=== PATIENT | male | born 1990 | race Caucasian/White ===

== ENCOUNTER 2024-03-20 09:12 | Outpatient (AMB) | payer OTHER, SELFPAY ==
[2024-03-20 09:13] VITALS: BP 116/86; PULSE 86; TEMP 37.1; O2SAT 98; BMI 28.1
--- NOTE | 2024-03-20 09:13 | MHC.OFFWIV ---
Intake Vital Signs 03/20/24 09:13 Height 5 ft 9 in Weight 190 lb BMI 28.1 BP 116/86 Blood Pressure Location Lt brachial Position Sitting Pulse 86 Pulse Source Pulse Oximeter Temp 98.7 F Temp Source Oral Pulse Oximetry (%) 98 Oxygen Delivery Method Room Air Intake Visit Reasons: EP lowere lft side pain/pressure Intake Note: Pt is here today c/o lower Lt side hip pain and pressure 2weeks after started basic [employer] Allergies aspirin [ASA] Allergy (Unknown, Unverified 03/20/24 09:17) UNKNOWN Penicillins [PCN] Allergy (Unknown, Unverified 03/20/24 09:17) UNKNOWN HPI HPI Comments History of Present Illness Details 33-year-old male presents with right-sided abdominal/hip pain. Present off and on for several months now no specific triggers no trauma. Does endorse some looser stools recently but no blood or diarrhea. Review of Systems GI Details: Looser stools left lower abdominal pain Physical Exam Vital Signs: Last Vital Signs Temp 98.7 F 03/20/24 09:13 Pulse 86 03/20/24 09:13 BP 116/86 03/20/24 09:13 Pulse Ox 98 03/20/24 09:13 Oxygen Delivery Method Room Air 03/20/24 09:13 BMI result Body Mass Index 28.1 Const General: cooperative, healthy appearing, no acute distress and alert Orientation/consciousness: patient oriented x3 Limitations: no limitations HEENT Head: Yes normal to inspection Ears: hearing grossly normal bilaterally General nose exam: Normal external nose present Resp Effort & Inspection: normal respiratory effort and able to speak in complete sentences Cardio Rate: regular rate GI Other: No tenderness to palpation Skin General skin exam: no rashes or lesions noted Neuro General: patient oriented x3 Extrem General: Yes normal to inspection Assessment & Plan Assessment & Plan (1) Abdominal pain: Code(s): R10.9 - Unspecified abdominal pain Qualifiers: Abdominal location: left lower quadrant Qualified Code(s): R10.32 - Left lower quadrant pain Plan: Unclear etiology of patient's abdominal pain of consideration could be IBS versus musculoskeletal in nature. Recommend symptomatic treatment with Tylenol Motrin as needed as well as heat. Also recommend increasing fiber and keeping a journal does identify specific triggers. A suspicion for bony abnormality given no trauma. Coding Level of Care Code Est Pt Level 3 (88445) Diagnoses Left lower quadrant abdominal pain R10.32 Abdominal location: left lower quadrant
== END 2024-03-20 09:40 | disposition home or self-care (01) ==
LOC: HO.HMGWI 09:12
DX: R10.32 Left lower quadrant pain (principal)
CPT/HCPCS: 99051; 99213

== ENCOUNTER 2024-10-22 10:07 | Outpatient (REF) | payer OTHER, SELFPAY ==
[2024-10-22 14:52] LABS: Estimated Average Glucose 100 mg/dL; Hemoglobin A1C 134.1022 umol/L; Hemoglobin A1c % 5.1 % (<6.0); Total Hemoglobin (HGBA1C) 4104.4586 umol/L
[2024-10-22 15:40] LABS: TSH reflex Free T4 1.08 uIU/mL (0.32-4.0)
[2024-10-22 15:46] LABS: Creatinine Urine 214.21 mg/dL
[2024-10-22 15:46] LABS: Folate 14.8 ng/mL (> or = 4.0); Vitamin B12 574 pg/mL (200-900)
[2024-10-22 15:53] LABS: Anion Gap 11 (12-20)
[2024-10-22 15:58] LABS: Alanine Aminotransferase 26 U/L (0-40); Albumin Level 4.7 g/dL (3.5-5.0); Alkaline Phosphatase 68 U/L (39-117); Aspartate Amino Transferase 26 U/L (5-37); Bilirubin Total 1.5 mg/dL (0.0-1.0); Blood Urea Nitrogen 11 mg/dL (9-16); Calcium 9.3 mg/dL (8.4-10.2); Carbon Dioxide 28 mmol/L (22-29); Chloride 107 mmol/L (96-108); Cholesterol 151 mg/dL (<200); Estimated Glomerular Filt Rate > 60; Glucose Random 92 mg/dL (60-115); HDL Cholesterol 45 mg/dL (>40); LDL Cholesterol Calculated 92 mg/dL (<100); Potassium 3.8 mmol/L (3.3-5.1); Sodium 142 mmol/L (135-145); Total Protein 7.9 g/dL (6.5-8.0); Triglycerides 72 mg/dL (<150)
[2024-10-25 19:39] LABS: TS Negative Control Passed; TS Panel A 0; TS Panel B 0; TS Positive Control Passed; TSpotTB Negative (Negative)
== END 2024-10-22 10:08 | disposition home or self-care (01) ==
LOC: HO.WFDLDS 10:07
PROVIDERS: PCP Nurse Practitioner Family; Visit Provider Nurse Practitioner Family
DX: Z00.00 Encounter for general adult medical examination without abnormal findings (principal); Z11.1 Encounter for screening for respiratory tuberculosis; R03.0 Elevated blood-pressure reading, without diagnosis of hypertension
CPT/HCPCS: 36415; 80053; 80061; 82043; 82570; 82607; 82746; 83036; 84443; 86481; 96127